=== PATIENT | male | born 1965 | race African-American/Black ===

== ENCOUNTER 2017-05-01 21:41 | Emergency (ER) | payer BC ==
--- NOTE | ~2017-05-01 | CT71 ---
[facility] A Service of [facility] RADIOLOGY TEXT RESULTS PATIENT: PADMINI DKUES LOCATION: STAR : 65 UNIT #: [id number] AGE: [address]: Mg Kenney MD SEX: M ORDER DR: [id number] [facility] [address] [place], [place] [address] [id number] E MR#: [id number] #: [id number] NAME: PADMINI DUKES : 1965 SEX: M STUDY DATE/TIME: 05/01/2017 23:04 UNIT: STAR ROOM: STUDY DESCRIPTION: CT Head Wo Contrast Attending Physician: Mg Kenney M.D. Ordering Physician: Mg Kenney M.D. Primary Care Physician: Lilian Bryan M.D. MEDICAL IMAGING REPORT This report is preliminary unless electronic signature is present EXAM CT head without contrast INDICATION Right facial numbness and facial droop with slurred speech since noon today. PROCEDURE Unenhanced CT of the head. This CT examination was performed with one or more of the following radiation dose reduction techniques: automatic exposure control, adjustment of mA and/or kV according to patient size, and iterative reconstruction. COMPARISON None. FINDINGS No acute hemorrhage, abnormal mass effect, extraaxial fluid collection or hydrocephalus. No definitive evidence for an acute or early subacute large territory infarct. No depressed calvarial fracture. The paranasal sinuses and mastoid air cells are clear. IMPRESSION No definite acute findings. No definite acute or early subacute large territory infarct. If there is ongoing clinical suspicion, brain MRI would be helpful. Dictated by... Raleigh Goldsmith M.D. THIS IS AN ELECTRONICALLY VERIFIED REPORT Raleigh Goldsmith M.D. at 05/07/2017 3:09 PM [facility] A Service [facility] RADIOLOGY TEXT RESULTS PATIENT: PADMINI DUKES LOCATION: STAR : 65 UNIT #: [id number] AGE: [address]: Mg Kenney MD SEX: M ORDER DR: CAROLINE/jose juan TD: 05/02/2017 12:35 JOB #: [id number] MEDICAL IMAGING REPORT Page 1 of 1 COPY
[~2017-05-01 21:41] MED LIST: ACETAMINOPHEN PO; ADVAIR 2501 DISK W/D PO; ADVAIR INH; ALBUTEROL17 GM INH; AMLODIPINE BESYL5 MG PO; ASPIRIN PO; AUGMENTIN875 M1 PO; BENICAR PO; DICLOFENAC; FISH OIL 1,01 CAP.EC; FISH OIL300 MG PO; FLEXERIL10 M1 PO; GLUCOVANCE 5/501 TA1 PO; GLUCOVANCE 5/501 TA3 PO; IBUPROFEN400 MG PO; LIPITOR PO; LIPITOR20 MG PO; MEDROL DOSEPAK4 MG DOB; NAPROSYN500 MG PO; NORVASC PO; OS-CAL 500 + D500 MG; PROAIR HFA8.5 GM INH; ROBAXIN500 MG; SKELAXIN PO; SYNTHROID PO; TYLENOL #3 PO; VICODIN 5/1 TAB 5/50 PO; ZESTORETIC 20/11 TA1; ZESTORETIC 20/11 TAB PO; ZITHROMAX PO
[2017-05-01 22:48] LABS: POC - CKMB 3.5 ng/mL (0.0-7.9); POC - TROPONIN <0.05 ng/mL (<=0.05)
== END 2017-05-02 00:10 | disposition home or self-care (01) ==
LOC: CED 21:41
PROVIDERS: Emergency Medicine
DX: G51.0 Bell's palsy (principal); I10 Essential (primary) hypertension; J44.9 Chronic obstructive pulmonary disease, unspecified; E11.9 Type 2 diabetes mellitus without complications; I25.10 Atherosclerotic heart disease of native coronary artery without angina pectoris; Z88.2 Allergy status to sulfonamides; Z88.8 Allergy status to other drugs, medicaments and biological substances; Z79.82 Long term (current) use of aspirin; Z79.899 Other long term (current) drug therapy
CPT/HCPCS: 36415; 70450; 82553; 82947; 84484; 99284